=== PATIENT | male | born 1945 | race Caucasian/White ===

== ENCOUNTER → 2016-08-09 | Outpatient (CLI) | payer MEDICARE ==
--- NOTE | 2016-08-09 12:18 | FL ---
Modified barium swallow. HISTORY: Dysphagia. Modified barium swallow was performed with the department of speech pathology. The patient was prese nted with various consistencies of barium. There is no evidence for aspiration or penetration. Full report is to follow from the department of speech pathology. Impression: Normal study.
== END | disposition home or self-care (01) ==
LOC: RADFLMAIN 10:39
PROVIDERS: ATTEND Family Medicine
DX: R05 Cough (principal)
CPT/HCPCS: 74230

== ENCOUNTER → 2016-08-16 | Outpatient (CLI) | payer MEDICARE ==
[2016-08-16 13:49] LABS: Blood Urea Nitrogen 24 mg/dL (9-20); Non-African American GFR(MDRD) 57 (>60 ml/min/1.73 sqM)
--- NOTE | 2016-08-16 15:09 | CT ---
EXAMINATION TYPE: CT chest w con DATE OF EXAM: 08/16/2016 COMPARISON: NONE HISTORY: Chronic obstructive pulmonary disease CT DLP: 355.8 mGycm Automated exposure control for dose reduction was used. CONTRAST: CT scan of the chest is performed with IV Contrast, patient injected with 80 mL of Visipaque 320. FINDINGS: LUNGS: There are extensive centrilobular emphysematous changes present within the lungs. No pleural o r pericardial effusion. Nodular density seen on axial image 23 in the right upper lobe measures appro ximately 5 to 6 mm, axial image 24 also shows a nodule in the right upper lobe measuring 4 mm. Subple ural nodular densities also present on axial image 25, 26 on the right. Areas of parenchymal bands, s carring also suspected bilaterally. Paraseptal emphysematous changes are also present. Apical pleural scarring is present. Suspect additional nodularity axial image 22 superior segment rig ht lower lobe measuring 4 to 5 mm and possibly further towards the apex on the right, left upper lobe axial image 20 MEDIASTINUM: Coronary artery calcifications are present. No pericardial effusion. No evident adenopat hy. AORTA: Ectatic, aortic root measures 3.9 cm. OTHER: Densities within the spleen measuring approximately 17 mm may represent hemangiomas. IMPRESSION: Emphysema, indeterminate pulmonary nodules, aortic aneurysm, follow-up is recommended. A dditional findings above.
== END | disposition home or self-care (01) ==
LOC: RADCTMAIN 13:02
PROVIDERS: ATTEND Family Medicine
DX: J43.9 Emphysema, unspecified (principal); I71.4 Abdominal aortic aneurysm, without rupture; R91.1 Solitary pulmonary nodule
CPT/HCPCS: 82565; 84520; 71260; 36415; Q9967